=== PATIENT | male | born 1965 | race Caucasian/White ===

== ENCOUNTER 2017-03-10 08:24 | Emergency (ER) | payer OTHER ==
[~2017-03-10] VITALS: Ht 172.7 cm; Wt 81.8 kg
[2017-03-10 09:47] VITALS: BP 120/65
== END 2017-03-10 10:02 | disposition short-term general hospital (02) ==
LOC: EME 08:24
PROC: 3E0234Z Introduction of Serum, Toxoid and Vaccine into Muscle, Percutaneous Approach (ICD-10-PCS; principal; 2017-03-10)
DX: S68.110A Complete traumatic metacarpophalangeal amputation of right index finger, initial encounter (principal); S68.112A Complete traumatic metacarpophalangeal amputation of right middle finger, initial encounter; W23.0XXA Caught, crushed, jammed, or pinched between moving objects, initial encounter; Y92.009 Unspecified place in unspecified non-institutional (private) residence as the place of occurrence of the external cause; Z23 Encounter for immunization; Z88.6 Allergy status to analgesic agent; Z88.2 Allergy status to sulfonamides
CPT/HCPCS: 99281; 99285; J0690; J7050; S0020